=== PATIENT | male | born 1970 | race African-American/Black ===

== ENCOUNTER 2020-03-14 21:14 | Emergency (ER) | payer BC ==
--- NOTE | 2020-03-14 22:17 | ER Document Report ---
ED Medical Screen (RME) - General Chief Complaint: Chest Pain Stated Complaint: CHEST PAIN/WEAKNESS Time Seen by Provider: 03/14/20 22:13 Primary Care Provider: DANETTE RIVAS MD [Primary Care Provider] - Follow up as needed Mode of Arrival: Ambulatory Information source: Patient Notes: HPI; 49-year-old male presents to the emergency room complaining of intermittent palpitations with dizziness that started around 8 PM tonight. Denies any chest pain or shortness of breath. No cardiac history outside of a heart murmur. No medications for symptoms. No chest trauma. PE: Alert and oriented x3. Mild distress noted. Lungs: Clear to auscultation without rales, rhonchi, wheezes. Heart: Regular rate and rhythm without murmurs, rubs, gallops. I have greeted and performed a rapid initial assessment of this patient. A comprehensive ED assessment and evaluation of the patient, analysis of test results and completion of the medical decision making process will be conducted by additional ED providers. I have specifically instructed the patient or family members with the patient to immediately return to any nursing staff should anything change in the patient's condition or with their chief complaint. TRAVEL OUTSIDE OF THE [place] IN LAST 30 DAYS: No - Related Data Allergies/Adverse Reactions: No Known Allergies Allergy (Verified 03/14/20 22:12) Past Medical History - Past Medical History Cardiac Medical History: Reports: Hx Hypertension Pulmonary Medical History: Reports: Hx COPD Endocrine Medical History: Denies: Hx Diabetes Mellitus Type 2 - Immunizations Hx Diphtheria, Pertussis, Tetanus Vaccination: Yes Physical Exam - Vital signs Vitals: Temp Pulse Resp BP Pulse Ox 98.5 F 94 18 156/89 H 95 03/14/20 21:42 03/14/20 21:42 03/14/20 21:42 03/14/20 21:42 03/14/20 21:42 Course - Vital Signs Vital signs: Temp Pulse Resp BP Pulse Ox 98.5 F 94 18 156/89 H 95 03/14/20 21:42 03/14/20 21:42 03/14/20 21:42 03/14/20 21:42 03/14/20 21:42 Doctor's Discharge - Discharge Referrals: DANETTE RIVAS MD [Primary Care Provider] - Follow up as needed
--- NOTE | 2020-03-14 22:56 | RADIOLOGY REPORT (SQ) ---
EXAM DESCRIPTION: XR CHEST 2 VIEWS COMPLETED DATE/TME: 03/14/2020 22:16 CLINICAL HISTORY: 49 years, Male, palpitations COMPARISON: 01/12/2015 chest NUMBER OF VIEWS: 2 TECHNIQUE: 2 views of the chest LIMITATIONS: None. FINDINGS: Heart size is normal. The lungs are clear. No pneumothorax IMPRESSION: Negative chest copyright 2010 [facility]- All Rights Reserved
[2020-03-14 23:11] LABS: ALBUMIN 4.9 g/dL (3.5-5.0); ALKALINE PHOSPHATASE 67 U/L (38-126); ANION GAP 10 (5-19); ASPARTATE AMINO TRANSFERASE 25 U/L (17-59); BILIRUBIN,DIRECT 0.2 mg/dL (0.0-0.4); BILIRUBIN,TOTAL 0.5 mg/dL (0.2-1.3); BLOOD UREA NITROGEN 13 mg/dL (7-20); CALCIUM 9.3 mg/dL (8.4-10.2); CARBON DIOXIDE 27 mmol/L (22-30); CHLORIDE 105 mmol/L (98-107); CREATINE KINASE 297 U/L (55-170); GLUCOSE 99 mg/dL (75-110); POTASSIUM 4.2 mmol/L (3.6-5.0); TOTAL PROTEIN 8.4 g/dL (6.3-8.2)
[2020-03-14 23:13] LABS: ABSOLUTE EOSINOPHILS # (AUTO) 0.1 10^3/uL (0.0-0.6); ABSOLUTE LYMPHOCYTES (AUTO) 1.3 10^3/uL (0.5-4.7); ABSOLUTE MONOCYTES (AUTO) 0.4 10^3/uL (0.1-1.4); BASOPHILS % (AUTO) 0.2 % (0-2); EOSINOPHILS % (AUTO) 1.6 % (0-6); HEMATOCRIT 45.6 % (37.9-51.0); HEMOGLOBIN 15.1 g/dL (13.5-17.0); LYMPHOCYTES % (AUTO) 22.8 % (13-45); MEAN CORPUSCULAR HEMOGLOBIN 29.5 pg (27.0-33.4); MEAN CORPUSCULAR VOLUME 89 fl (80-97); MONOCYTES % (AUTO) 6.7 % (3-13); PLATELET COUNT 254 10^3/uL (150-450); RED CELL DISTRIBUTION WIDTH 14.9 % (11.5-14.0); SEGMENTED NEUTROPHILS % (AUTO) 68.7 % (42-78); TOTAL CELLS COUNTED % (AUTO) 100 %; WHITE BLOOD COUNT 5.9 10^3/uL (4.0-10.5)
[2020-03-14 23:30] LABS: CREATINE KINASE MB 1.65 ng/mL (<4.55)
[2020-03-14 23:40] LABS: TROPONIN I < 0.012 ng/mL
--- NOTE | 2020-03-15 02:37 | ER Document Report ---
ED General - General Chief Complaint: Palpitations Stated Complaint: CHEST PAIN/WEAKNESS Time Seen by Provider: 03/14/20 22:13 Primary Care Provider: DANETTE RIVAS MD [Primary Care Provider] - Follow up as needed Mode of Arrival: Ambulatory TRAVEL OUTSIDE OF THE [place] IN LAST 30 DAYS: No - HPI Notes: Patient presents to the emergency department for evaluation of palpitations. He was lying back in his recliner. He had a sudden onset of palpitations. He then felt a "yanez of heat". He stood up, felt dizzy and near syncopal. He did not have a syncopal episode. He had no nausea, no diaphoresis. He denies any shortness of breath or chest pain. He states that he has not had any recurrence of the symptoms since then. He denies excessive caffeine use. He has not seen a doctor in some time. - Related Data Allergies/Adverse Reactions: No Known Allergies Allergy (Verified 03/14/20 22:12) Home Medications: None Past Medical History - General Information source: Patient - Social History Smoking Status: Current Every Day Smoker Frequency of alcohol use: None Drug Abuse: None Family History: Reviewed & Not Pertinent, DM - Past Medical History Cardiac Medical History: Reports: Hx Hypertension - Once required meds, improved with lifestyle changes Pulmonary Medical History: Reports: Hx COPD Endocrine Medical History: Denies: Hx Diabetes Mellitus Type 2 - Immunizations Hx Diphtheria, Pertussis, Tetanus Vaccination: Yes Review of Systems - Review of Systems Constitutional: No symptoms reported EENT: No symptoms reported Cardiovascular: See HPI Respiratory: No symptoms reported Gastrointestinal: No symptoms reported Genitourinary: No symptoms reported Musculoskeletal: No symptoms reported Skin: No symptoms reported Neurological/Psychological: No symptoms reported Physical Exam - Vital signs Vitals: Temp Pulse Resp BP Pulse Ox 98.5 F 94 18 156/89 H 95 03/14/20 21:42 03/14/20 21:42 03/14/20 21:42 03/14/20 21:42 03/14/20 21:42 - Notes Notes: Vital signs reviewed, please refer to chart. Head is normocephalic, atraumatic. Pupils equal round, reactive to light. Neck is supple without meningismus. Heart is regular rate and rhythm. Lungs are clear to auscultation bilaterally. Abdomen is soft, nontender, normoactive bowel sounds throughout. Extremities without cyanosis, clubbing. Posterior calves are nontender. Peripheral pulses are equal. Skin is warm and dry. Patient is awake, alert, neurological exam is nonfocal. Course - Re-evaluation Re-evalutation: 03/15/20 02:33 Vital signs reviewed, please refer to chart. Head is normocephalic, atraumatic. Pupils equal round, reactive to light. Neck is supple without meningismus. Heart is regular rate and rhythm. Lungs are clear to auscultation bilaterally. Abdomen is soft, nontender, normoactive bowel sounds throughout. Extremities without cyanosis, clubbing. Posterior calves are nontender. Peripheral pulses are equal. Skin is warm and dry. Patient is awake, alert, neurological exam is nonfocal. - Vital Signs Vital signs: Temp Pulse Resp BP Pulse Ox 98.5 F 94 18 156/89 H 100 03/14/20 21:42 03/14/20 21:42 03/14/20 21:42 03/14/20 21:42 03/14/20 22:16 - Laboratory Result Diagrams: 03/14/20 22:23 03/14/20 22:23 Laboratory results interpreted by me: 03/14/20 03/14/20 22:23 22:23 RDW 14.9 H Creatine Kinase 297 H Total Protein 8.4 H - Diagnostic Test Radiology reviewed: Reports reviewed Radiology results interpreted by me: 03/15/20 02:34 Chest X-Ray 03/14/20 22:16 IMPRESSION: Negative chest copyright 2010 [employer]- All Rights Reserved - EKG Interpretation by Me Additional EKG results interpreted by me: 03/15/20 02:34 Sinus mechanism with a rate of 89 bpm. Normal axis and intervals. Findings concerning for LVH. No acute ST or T wave changes concerning for ischemia or infarction. Discharge - Discharge Clinical Impression: Palpitations, Near syncope, Elevated blood pressure reading Condition: Stable Disposition: HOME, SELF-CARE Instructions: Palpitations (Irregular or Rapid Heartrate) ([facility]), High Blood Pressure ([facility]) Additional Instructions: Stay well-hydrated. Avoid high sodium diet. Avoid caffeine. Try to quit smoking. Follow-up with primary care, bring your blood pressure readings for fu rther evaluation. If you develop worsening or new concerning symptoms of any sort, please return immediately to the emergency department for reevaluation. Forms: Smoking Cessation Education Referrals: DANETTE RIVAS MD [Primary Care Provider] - Follow up as needed
[2020-03-15 03:38] VITALS: BP 157/89
--- NOTE | 2020-03-15 07:46 | EKG REPORT ---
SEVERITY:- BORDERLINE ECG - SINUS RHYTHM PROBABLE LEFT ATRIAL ABNORMALITY : Confirmed by: Andrew Nunez MD 15-Mar-2020 07:45:56
== END 2020-03-15 03:24 | disposition home or self-care (01) ==
LOC: ER 21:14
DX: R00.2 Palpitations (principal); R55 Syncope and collapse; I10 Essential (primary) hypertension; J44.9 Chronic obstructive pulmonary disease, unspecified; F17.200 Nicotine dependence, unspecified, uncomplicated
CPT/HCPCS: 36415; 71046; 80053; 82550; 82553; 84484; 85025; 93005; 93010; 99285